=== PATIENT | female | born 1990 | race Caucasian/White ===

== ENCOUNTER → 2019-09-07 08:48 | Outpatient (CLI) | payer SELFPAY ==
[2014-09-28 10:45] VITALS: BMI 40.5
[~2019-09-07 08:48] MED LIST: AUGMENTIN 875-11 TAB PO; CLARITIN 10 MG10 MG PO; HYDROCODONE-APA1 TAB PO; IBUPROFEN600 MG PO; PRENAVITE1 TAB PO
[2019-09-07 09:43] LABS: APPEARANCE CLOUDY (CLEAR); BILIRUBIN NEGATIVE (NEGATIVE); COLOR YELLOW (YELLOW); GLUCOSE NEGATIVE (NEGATIVE); KETONE NEGATIVE (NEGATIVE); NITRITE NEGATIVE (NEGATIVE); PROTEIN NEGATIVE (NEGATIVE); UROBILINOGEN NORMAL (NORMAL)
[2019-09-07 09:48] LABS: BACTERIA MANY /hpf (NEGATIVE); EPITHELIAL CELLS 0-5 /hpf (0-5); RED CELLS - URINE NONE SEEN /hpf (0-5)
== END | disposition home or self-care (01) ==
LOC: D.LDO 08:48
PROVIDERS: ATTEND Obstetrics & Gynecology
DX: O47.00 False labor before 37 completed weeks of gestation, unspecified trimester (principal)

== ENCOUNTER 2019-09-28 17:23 | Outpatient (CLI) | payer SELFPAY ==
[2014-09-28 10:45] VITALS: BMI 40.5
[2019-09-28 18:41] LABS: APPEARANCE CLEAR (CLEAR); BILIRUBIN NEGATIVE (NEGATIVE); COLOR YELLOW (YELLOW); GLUCOSE NEGATIVE (NEGATIVE); KETONE NEGATIVE (NEGATIVE); NITRITE NEGATIVE (NEGATIVE); PROTEIN NEGATIVE (NEGATIVE); UROBILINOGEN NORMAL (NORMAL)
== END 2019-09-28 19:24 | disposition home or self-care (01) ==
LOC: D.LDO 17:23
PROVIDERS: ATTEND Obstetrics & Gynecology
DX: O26.899 Other specified pregnancy related conditions, unspecified trimester (principal); M54.9 Dorsalgia, unspecified; R11.2 Nausea with vomiting, unspecified

== ENCOUNTER 2019-10-24 13:00 | Inpatient (IN) | payer OTHER ==
[~2019-10-24] VITALS: Ht 165.1 cm; Wt 87.1 kg
[2019-10-24] VITALS (11 sets, daily range): BP systolic 100–113; BP diastolic 53–73; Ht 165.1 cm; Wt 87.1 kg
--- NOTE | ~2019-10-24 | OP ---
PATIENT NAME: JOHAN MOHAMUD MEDICAL RECORD: [id number] :92 LOCATION:[id number] ADMISSION DATE:10/24/19 SURGEON: LUX ZULETA MD DATE OF OPERATION: 10/24/2019 PREOPERATIVE DIAGNOSES: 1. Term intrauterine at 39 weeks. 2. History of previous section. POSTOPERATIVE DIAGNOSES: 1. Term intrauterine at 39 weeks. 2. History of previous section. PROCEDURE: Repeat low transverse section. SURGEON: Lux Zuleta MD ANESTHESIA: Regional via spinal. INTRAVENOUS FLUIDS: Per anesthesia record. ESTIMATED BLOOD LOSS: 1000 cc. SPECIMENS: Included placenta and cord for gases. FINDINGS: 1. Viable , Apgars 9 at one and 9 at five. 2. Placenta delivered manually intact, 3-vessel cord noted. 3. Normal adnexa bilaterally. COMPLICATIONS: None apparent. PROCEDURE IN DETAIL: The patient was taken to the operating room where regional anesthesia was achieved without any difficulty via spinal. The patient was then prepped and draped in normal sterile fashion in the dorsal supine position. SCDs were on and functioning normally, and a Ash catheter had been placed and was draining freely. At this point, a Pfannenstiel skin incision was made and extended downward to the underlying subcutaneous fat to the level of the fascia. The fascia was then excised in the midline and extended bilaterally using the Esteves scissors. The superior and inferior aspects of the fascial incision were then grasped with Sonu clamps times 2, tented upward, and sharply dissected from the underlying fascia using the Bovie cautery and the Esteves scissors. The rectus muscles were then bluntly in the midline. Peritoneum entered sharply at the superior aspect of the incision. The peritoneal incision was then extended laterally using the Metzenbaum scissors and inferiorly using the Metzenbaum scissors. A bladder blade was then placed into the pelvis. A bladder flap was created by excising the anterior leaf of the broad ligament across the lower uterine segment. This was further developed sharply using the Metzenbaum scissors and the bladder blade was replaced over the bladder flap. A low transverse incision was made with a scalpel and extended using the Pelosi method. The vertex was delivered atraumatically, followed by the body. The infant was bulb suctioned upon delivery of the head. The cord was clamped times 2, cut, and infant was handed to the waiting nursery team. Cord was obtained for gases and the placenta was delivered manually intact. The uterus was cleared of all clots and debris, exteriorized and vigorously massaged with OPERATIVE REPORT [id number] JOHAN MOHAMUD good uterine tone noted. The fascial incision was repaired with 0 Vicryl in a running locked fashion times 2 with good hemostasis noted. Posterior cul-de-sac was then thoroughly irrigated and the uterus was replaced into the pelvis. Anterior cul-de-sac was then thoroughly irrigated and meticulous hemostasis was noted from the uterine incision. Counts were correct times 2 for needles, sponges, and instruments. The fascia was repaired with 0 loop PDS times 1 and the skin repaired with gabe. The patient tolerated the procedure well, transferred to postanesthesia recovery stable without incident. TRANSINT:[id number] Voice Confirmation ID: [id number] DOCUMENT ID: [id number] LUX ZULETA MD CC: [id number] DICTATION DATE: 11/04/19726 FISHING BOAT CAPTAIN: 11/04/19 0752 DIS IN 10/26/19 [facility] [address] [place] [address]
[2019-10-24] MEDS ORDERED: HYDROCODON-ACE1 EAC7 PO (14:54)
[2019-10-24 15:33] LABS: BASOPHILS 0.4 % (0-2); EOSINOPHILS 0.5 % (0-7); HEMATOCRIT 31.4 % (36.0-48.0); HEMOGLOBIN 9.6 g/dL (12-16); IMMATURE GRANULOCYTES 0.3 % (0-5); LYMPHOCYTES 21.5 % (15-50); MCH 22.2 pg (26.0-34.0); MCHC 30.6 g/dL (31.0-37.0); MCV 72.5 fL (80.0-100.0); MEAN PLATELET VOLUME 9.7 fL (7.4-10.4); MONOCYTES 6.4 % (2-11); NEUTROPHILS 70.9 % (40-80); PLATELET COUNT 334 10x3/uL (130-400); RBC 4.33 10x6/uL (4.00-5.40); RDW 16.9 % (11.5-14.5); WBC 9.8 10x3/uL (4.8-10.8)
--- NOTE | 2019-10-24 17:50 | NUR ---
RECEIVED PT FROM RECOVERY ROOM. ALERT AND ORIENTED. IV NS WITH 20 U PITOCIN PLACED ON ALARIS PUMP AT 125 ML/HR. INFUSING INTO LEFT AC WITHOUT SIGNS OF INFILTRATION. VS OBTAINED. U/U FIRM, RUBRA MOD, CLEAN CHUX/TOWELS PLACED. CLEAN CHARLENE-PADS X 2 PLACED. INSTRUCTED ON INCENTIVE SPIROMETER WHICH WAS USED X 3 WITHOUT DIFFICULTY. LTCS ABD DRESSING DRY AND INTACT. NOVA DRAINING CLEAR YELLOW URINE AND ATTACHED TO INNER RIGHT THIGH. SCD'S ON AND PLACED ON PUMP. WORKING BILATERALLY. VISITOR X 1 IN ROOM. IN NURSERY. DISCUSSED PLANS FOR PAIN MANAGEMENT INCLUDING AS400 ANALYST DILAUDID AND ICE PACK OVER INCISION. ICE PACK PLACED AT THIS TIME. SIDE RAILS UP X2, CALL LIGHT IN REACH.
--- NOTE | 2019-10-24 18:05 | NUR ---
U/U FIRM RUBRA SCANT, UNABLE TO MOVE LE. IN ROOM, PLANS TO BREASTFEED. CLEAR LIQUID DIET AT BEDSIDE. SIDE RAILS UP X 2, CALL LIGHT IN REACH.
--- NOTE | 2019-10-24 18:07 | NUR ---
DILAUDID GUEST ASSOCIATE INITIATED. /10 INCISIONAL PRESSURE. NO ACUTE DISTRESS NOTED. TALKING TO FAMILY, NOVA DRAINING. INSTRUCTED ON USE OF GUEST ASSOCIATE CONTROLLER FOR PAIN MANAGEMENT. INSTRUCTED THAT NO ONE ELSE MAY PUSH THE BUTTON. VERBALIZED UNDERSTANDING. SIDERAILS UP X 2, CALL LIGHT IN REACH.
--- NOTE | 2019-10-24 18:23 | NUR ---
U/U FIRM, ALBINO GREER, . VISITORS IN ROOM. NO REQUESTS. SIDE RAILS UP, BARN HAND AND CALL LIGHT IN REACH.
--- NOTE | 2019-10-24 18:45 | NUR ---
U/U FIRM ALBINO SMALL, REMOVED ONE CHARLENE-PAD. SECOND PAD CLEAN. NOVA DRAINING, IV PATENT, NO REQUESTS. INFANT AND VISITORS IN ROOM.
--- NOTE | 2019-10-24 19:35 | NUR ---
THIS RN AND Ambrose CONDON RN TO BEDSIDE FOR BEDSIDE SHIFT REPORT. PT AA&O X 4. INFORMED THAT WE ARE DOING BEDSIDE SHIFT REPORT AT THIS TIME. 2 FAMILY MEMBERS AT BEDSIDE. PAIN ASSESSED AT THIS TIME. PT REPORTS PAIN 6/10. Ambrose CONDON ASKS PT IF 6/10 IS A TOLERABLE PAIN LEVEL FOR HER. PT STATES "YES." PT CURRENTLY ATTEMPTING TO CONSUME CLEAR LIQUID DIET AT THIS TIME. PT INFORMED THIS RN WILL RETURN AFTER THE PT HAS HAD TIME TO FINISH HER MEAL FOR A SHIFT ASSESSMENT. PT IS AGREEABLE. APPROX 300ML URINE NOTED IN UROMETER AND DUMPED TO NOVA BAG. PT DENIES NEEDS AT THIS TIME. BED LOW, SIDE RAILS UP X 2. CALL LIGHT AND DIRECTOR OF COMMUNITY LIFE BUTTON AT PT'S SIDE. SCD WRAPS IN PLACE BILATERALLY. CONNECTED TO PUMP. PUMP IS ON AND FUNCTIONING.
--- NOTE | 2019-10-24 20:00 | NUR ---
THIS RN TO BEDSIDE FOR SHIFT ASSESSMENT. PT AA&O X 4. REPORTS PAIN IS 6/10. HAS REPORTS SHE HAS BEEN USING HER COMMERCIAL DECORATOR. NO FURTHER PAIN INTERVENTIONS REQUESTED AT THIS TIME. PT HAS A PIV TO LEFT AC W/NS W/20 UNITS PITOCIN INFUSING AT 125ML/HR. SITE WNL W/OUT REDNESS OR SWELLING. BREATHSOUNDS CL/=, BOWEL SOUNDS PRESENT IN ALL 4 QUADRANTS. ABD SOFT,NON DISTENDED. PT DENIES PASSING FLATUS OF YET. FUNDUS FIRM,U/U, SMALL RUBRA LOCHIA NOTED. CLEAN PERIPAD PLACED. NOVA CATH IS PLACE AND DRAINING VIA GRAVITY AT BEDSIDE. PT REPORTS SHE DOESN'T HAVE FULL CONTROL OF HER LOWER EXTREMITIES YET, SHE'S ABLE TO MOVE THEM SLIGHTLY. SCD WRAPS REMOVED AND LEGS INSPECTED. WRAPS REPLACED. REMAIN CONNECTED TO PUMP. PUMP IS ON AND FUNCTIONING. PEDAL PULSES PRESENT BILATERALLY. PT INSTRUCTED ON I.S. AND PERFORMS X 3 TIMES WITH GOOD EFFORT. COUGHS X 3 W/GOOD EFFORT. PT REPOSITIONED FROM SIDE TO SIDE TO REST TO LEFT LATERAL TILT. PILLOW TO BACK FOR COMFORT. FRESH ICE CAP TO ABD. PILLOW PLACED BETWEEN PT'S LEGS FOR COMFORT. FRESH ICE WATER AND A CUP OF ICE SERVED. PT DENIES FURTHER NEEDS AT THIS TIME. 2 VISITORS AT BEDSIDE. BED LOW, [place] RAILS UP X 2. CALL LIGHT AND COMMERCIAL DECORATOR BUTTON AT PT'S SIDE.
--- NOTE | 2019-10-24 21:00 | NUR ---
ROUNDS MADE. PT REMAINS TO LEFT LATERAL TILT. AA&O X 4. REPORTS PAIN 5/10. PT ASKED IF SHE HAS BEEN PUSHING HER WRAP TURNER BUTTON. PT REPORTS SHE HAS BEEN, BUT NOT FREQUENTLY BECAUSE SHE WANTS TO BE AWAKE AND ALERT WHEN HER BABY GETS TO COME TO THE ROOM. NO REQUEST FOR ADDITIONAL PAIN INTERVENTIONS AT THIS TIME.
--- NOTE | 2019-10-24 21:30 | NUR ---
ROUNDS MADE. PT AA&O X 4 TALKING WITH VISITORS. URINE OUTPUT COLLECTED. APPROX 90ML NOTED IN UROMETER AND DUMPED. PT DENIES NEEDS AT THIS TIME. ALARIS PUMP REMAINS AT 125ML/HR. SCD WRAPS REMAIN ON BILATERALLY, REMAIN CONNECTED TO PUMP. PUMP IS ON AND FUNCTIONING.
--- NOTE | 2019-10-24 22:30 | NUR ---
THIS RN TO BEDSIDE TO T/C/D WITH PATIENT. PT REPOSITIONS W/MINIMAL ASSIST AND TURNS FROM SIDE TO SIDE. 1 SET OF CHUX/TOWELS REMOVED. CURRENT PERIPAD W/SMALL RUBRA LOCHIA CHANGED. CLEAN PAD PLACED. PT ENDS IN LOW PERDUE'S POSITION. INCISION REMAINS C/D/I W/LARGE ABD BANDAGE. APPROX 100ML URINE NOTED IN UROMETER AND DUMPED. PT PERFORMS I.S. X 3 AND COUGHS W/GOOD EFFORT. PT STILL DENIES PASSING FLATUS, BUT STATES SHE CAN FEEL THE GAS IN HER SHOULDERS. NO REQUEST FOR PAIN INTERVENTION AT THIS TIME. PT REPORTS ALL FEELING HAS RETURNED TO LE'S, BUT SHE DOES HAVE SOME "TINGLING" IN BOTH LE'S. SCD WRAPS REMAIN IN PLACE BILATERALLY, REMAIN CONNECTED TO PUMP. PUMP IS ON AND FUNCTIONING. PT DECLINES OFFERS TO BRING HER ADDITIONAL EATS OR DRINKS. FAMILY AND SIG OTHER AT BEDSIDE. BED LOW, SIDE RAILS UP X 2. CALL LIGHT AND CARDIOVASCULAR OR NURSE BUTTON AT PT'S SIDE. UP IN SIG OTHERS ARMS.
--- NOTE | 2019-10-24 23:33 | NUR ---
ROUNDS MADE. PT CURRENTLY SITTING UP IN BED . PAIN ASSESSED. PT REPORTS PAIN IS BETTER. RATES PAIN 4/10. TORADOL TEACHING PROVIDED. PT IS AGREEABLE. APPROX 125ML URINE NOTED IN UROMETER AND DUMPED. WILL RETURN FOR VITALS SIGNS ONCE PT HAS FINISHED NURSING.
[2019-10-25 00:44] VITALS: BP 109/60
--- NOTE | 2019-10-25 00:45 | NUR ---
PT HAS COMPLETED NURSING AND PUMPING. THIS RN TO BEDSIDE FOR VITAL SIGNS AND TORADOL ADMIN. PT CURRENTLY RATING PAIN 6/10 REPORTING INCREASED CRAMPING PAIN POST . PT TURNS SELF FROM SIDE TO REST IN RT LATERAL TILT. CURRENT PERIPAD W/SMALL LOCHIA NOTED. PAD CHANGE DONE. APPROX 60ML URINE NOTED IN UROMETER. SCD WRAPS REMAIN IN PLACE BILATERALLY. CONNECTED TO PUMP. PUMP IS ON AND FUNCTIONING. FRESH ICE CAP PROVIDED. PT ENCOURAGED TO INCREASE PO FLUID IN ADDITION TO HER ICE THAT'S SHES BEEN EATING.PT AGREEABLE. BED LOW, SIDE RAILS UP X 2. CALL LIGHT AND EPIC SPECIALIST BUTTON AT PT'S SIDE. FAMILY AT BEDSIDE W/ UP IN ARMS. PT DENIES NEEDS AT THIS TIME.
--- NOTE | 2019-10-25 02:30 | NUR ---
ROUNDS MADE. PT CURRENTLY . DENIES NEEDS. APPROX 60ML NOTED IN UROMETER AND DUMPED TO NOVA BAG.
[2019-10-25 03:45] VITALS: BP 100/58
--- NOTE | 2019-10-25 03:45 | NUR ---
ROUNDS MADE FOR VITAL SIGNS. PT HAS REPOSITIONED SELF UP IN BED. PERFORMS I.S. X 3 W/GOOD EFFORT, COUGHS X3 W/GOOD EFFORT. REPORTS SHE HAS PASSED MORE FLATUS. SCD WRAPS REMAIN IN PLACE BILATERALLY, CONNECTED TO PUMP. PUMP IS ON AND FUNCTIONING. APPROX 100ML URINE NOTED IN UROMETER AND DUMPED. PT CURRENTLY RATES PAIN 2/10. DENIES FURTHER NEEDS AT THIS TIME. BED LOW, SIDE RAILS UP X 2. CALL LIGHT AND SALES TRAINER BUTTON AT PT'S SIDE.
--- NOTE | 2019-10-25 05:30 | NUR ---
ROUNDS MADE. PT AA&O X 4 IN HIGH FOWLERS. PAIN ASSESSED. PT REPORTS PAIN IS BEGINNING TO INCREASE. PT INFORMED OF THE NEXT TIME SHE MAY HAVE TORADOL. PT VERBALIZES UNDERSTANDING. APPROX 75ML URINE NOTED IN UROMETER AND DUMPED TO NOVA BAG. PT PERFORMS I.S. X 3 AND COUGHS X 3 WITH GOOD EFFORT. PT HAS REPOSITIONED SELF IN BED. SCD WRAPS REMAIN IN PLACE BILATERALLY, CONNECTED TO PUMP. PUMP REMAINS ON. FRESH ICE WATER SERVED PER REQUEST. PT DENIES FURTHER NEEDS AT THIS TIME.
--- NOTE | 2019-10-25 06:30 | NUR ---
TO PT'S BEDSIDE FOR SHIFT I&O COLLECTION. PT ATTEMPTING REST AT THIS TIME, BUT AA&O. PAIN ASSESSED. PT REPORTS PAIN 5/10. REMINDED OF TORADOL ADMIN TO COME. APPROX 1100ML OF URINE EMPTIED FROM NOVA BAG. IV PUMP CLEARED W/A TOTAL OF 1458ML NOTED FOR NS W/20 UNITS OF PITOCIN AND 22ML OF DILAUDID MUCKER COFFERDAM NOTED. PT HAS REPOSITIONED SELF TO LEFT LATERAL TILT AND NOW REPOSITIONS SELF TO SUPINE POSITION FOR PERICARE AND CHUX CHANGE. CURRENT PERIPAD W/SMALL TO MODERATE LOCHIA NOTED. CLEAN PERIPAD PLACED. PT DENIES NEEDS AT THIS TIME. ICE CAP REMOVED PER PT REQUEST.
[2019-10-25 06:44] LABS: BASOPHILS 0.2 % (0-2); EOSINOPHILS 0.9 % (0-7); HEMATOCRIT 27.3 % (36.0-48.0); HEMOGLOBIN 8.3 g/dL (12-16); IMMATURE GRANULOCYTES 0.3 % (0-5); LYMPHOCYTES 20.8 % (15-50); MCH 21.9 pg (26.0-34.0); MCHC 30.4 g/dL (31.0-37.0); MEAN PLATELET VOLUME 9.6 fL (7.4-10.4); MONOCYTES 5.8 % (2-11); RBC 3.79 10x6/uL (4.00-5.40); RDW 16.6 % (11.5-14.5); WBC 10.6 10x3/uL (4.8-10.8)
[2019-10-25 07:04] LABS: PLATELET COUNT 259 10x3/uL (130-400)
--- NOTE | 2019-10-25 08:24 | NUR ---
AM ASSESSMENT COMPLETED. FUNDUS FIRM AT U/1 WITH LIGHT BLEEDING NOTED TO CHARLENE PAD, BIKINI INCISION CLEAN AND DRY. NOVA CATH IN PLACE WITH 100ML CLEAR URINE NOTED. IV INFUSING PER ORDERS. SCD IN PLACE BILAT PER ORDERS. PT ABLE TO MOVE HERSELF UP IN BED AND STATES DESIRE THAT SHE IS READY TO GET UP AND WALK. RATES PAIN AT 4/10 AND IS AGREEABLE TO PAIN MED PRIOR TO AMBULATING. SIDE RAILS UP X 2 WITH CALL LIGHT WITH IN HER REACH.
--- NOTE | 2019-10-25 09:00 | NUR ---
IDENTIFICATION AND RECORDS COMMANDER DISCONTINUED AND IV SALINE LOCKED. PAIN MED GIVEN SCANNED TO EMAR. NOVA CATH REMOVED WITH TOTAL OF 350ML CLEAR URINE NOTED. PT IS THEN ABLE TO MOVE SELF TO SITTING UP ON SIDE OF BED, DENIES NAUSEA AND NO COMPLAINT OF DIZZINESS. UP TO BATHROOM WITH LITTLE ASSISTANCE. UNABLE TO VOID AT THIS TIME, WARM WET WASH CLOTHS PROVIDED FOR CHARLENE CARE, MESH BRIEFS WITH CHARLENE PAD ON AND GOWN CHANGED. AMBULATORY TO ROOM 1257 WITH INFANT IN CRIB. ORIENT TO ROOM, NO QUESTIONS OR NEEDS AT THIS TIME. FRIENDS/FAMILY AT BEDSIDE.
--- NOTE | 2019-10-25 09:45 | NUR ---
PT CALLS OUT THAT SHE WAS ABLE TO VOID. THIS RN TO ROOM, NOTED 400ML CLEAR URINE TO COLLECTION HAT. PT UNDERSTANDS THAT ADDITIONAL VOID NEEDS TO BE MEASURED. RATES PAIN AT 2/10, SITTING UP IN CHAIR AT BEDSIDE WITH INFANT. CALL LIGHT WITH IN HER REACH.
--- NOTE | 2019-10-25 10:30 | NUR ---
CALLED TO ROOM, PT VOIDED 200ML, DENIES PAIN OR BURNING WITH VOIDS AND IS REQUESTING TO SHOWER. TOWELS/GOWN PLACED IN BATHROOM. VERBAL INSTRUCTIONS GONE OVER ABOUT INCISION CARE. PT AND FAMILY MEMBER STATE UNDERSTANDING OF EMERGENCY CALL WHILE IN SHOWER.
--- NOTE | 2019-10-25 11:25 | NUR ---
PT OUT OF SHOWER, RATES PAIN AT 2/10 AND DENIES NEEDS FOR NURSE AT THIS TIME.
--- NOTE | 2019-10-25 13:45 | NUR ---
PT CALLS OUT WITH REQUEST FOR PAIN MED. THIS RN TO ROOM, SHE RATES PAIN AT INCISION AT 6/10 ALSO C/O NAUSEA AT THIS TIME. MEDS GIVEN SCANNED TO EMAR WITH LARGE ICE WATER. IN CRIB AT BEDSIDE, FRIENDS AND FAMILY PRESENT.
--- NOTE | 2019-10-25 14:15 | NUR ---
RATES PAIN AT 2/10 AT THIS TIME AND DENIES NAUSEA. NO NEEDS VOICED.
--- NOTE | 2019-10-25 16:00 | NUR ---
LARGE ICE WATER PER REQUEST. RATES PAIN AT 3/10. IN ROOM, FAMILY MEMBERS ALSO PRESENT.
--- NOTE | 2019-10-25 17:15 | NUR ---
PAIN MED GIVEN PER REQUEST. RATES PAIN AT 7/10 INFANT TO BREAST AT THIS TIME. SIG OTHER AT BEDSIDE.
--- NOTE | 2019-10-25 18:00 | NUR ---
PAIN AT 3/10 AT THIS TIME. NO NEEDS VOICED. INFANT IN CRIB AT BEDSIDE, FAMILY AND FRIENDS PRESENT. SIDE RAILS UP X 2 WITH CALL LIGHT IN REACH.
--- NOTE | 2019-10-25 18:45 | NUR ---
REPORT TO 7P-7A
--- NOTE | 2019-10-25 19:06 | NUR ---
SHIFT REPORT RECEIVED FROM ANA PETERSEN RN
--- NOTE | 2019-10-25 21:05 | NUR ---
PT RESTING IN BED HOLDING . DENIES ANY COMPLAINTS OR NEEDS AT THIS TIME. INSTRUCTED PT TO NOTIFY NURSE WITH ANY PROBLEMS, NEEDS, OR CONCERNS. VERBALIZED UNDERSTANDING. BED IN LOW POSITION. SR UP X2. CALL LIGHT WITHIN PTS REACH.
[2019-10-25 21:30] VITALS: BP 107/50
--- NOTE | 2019-10-25 21:30 | NUR ---
PT RESTING IN BED. ASSESSMENT COMPLETE PER FLOWSHEET. VSS. BBS CLEAR. ABDOMEN SOFT. LOW TRANSVERS ABDOMINAL INCISION C/D/I WITH WAQAS. FUNDUS FIRM AND 2 BELOW UMBILICUS. PT REPORTS A SMALL AMOUNT OF LOCHIA. ACTIVE BS X4 QUADRANTS. PT REPORS PASSING GAS. DENIES HAVING A BM. NO EDEMA NOTED TO BLE. INFANT IN OPEN CRIB AT PTS BEDSIDE. POC DISCUSSED. QUESTIONS ANSWERED. PT INSTRUCTED TO NOTIFY NURSE WITH ANY PROBLEMS, NEEDS, OR CONCERNS. VERBALIZED UNDERSTANDING. BED IN LOW POSITION. SR UP X2. CALL LIGHT WITHIN PTS REACH. SL REMOVED PER PT REQUEST.
--- NOTE | 2019-10-25 21:30 | NUR ---
NORCO 10 X1 TABLET GIVEN FOR C/O INCISION PAIN. INSTRUCTED PT TO NOTIFY NURSE IF MEDICATION NOT EFFECTIVE. VERBALIZED UNDERSTANDING.
--- NOTE | 2019-10-25 22:45 | NUR ---
PT RESTING IN BED. IN OPEN CRIB AT PTS BEDSIDE. PT DENIES ANY C/O PAIN OR ANY NEEDS AT THIS TIME. INSTRUCTED PT TO NOTIFY NURSE WITH ANY PROBLEMS, NEEDS, OR CONCERNS. VERBALIZED UNDERSTANDING. BED IN LOW POSITION. SR UP X2. CALL LIGHT WITHIN PTS REACH.
[2019-10-25 23:50] VITALS: BP 114/60
--- NOTE | 2019-10-25 23:50 | NUR ---
PT AMBULATING IN ROOM. S/O HOLDING . VS OBTAINED. PT DENIES ANY COMPLAINTS. PADS PROVIDED. INSTRUCTED PT TO NOTIFY NURSE WITH ANY PROBLEMS, NEEDS, OR CONCERNS. VERBALIZED UNDERSTANDING. BED IN LOW POSITION. SR UP X2. CALL LIGHT WITHIN PTS REACH.
--- NOTE | 2019-10-26 02:05 | NUR ---
PT RESTING IN BED WITH EYES CLOSED. INFANT IN OPEN CRIB AT PTS BEDSIDE. NO DISTRESS NOTED. BED IN LOW POSITION. SR UP X2. CALL LIGHT WITHIN PTS REACH.
[2019-10-26 04:40] VITALS: BP 106/64
--- NOTE | 2019-10-26 04:57 | NUR ---
PT SITTING UP ON SIDE OF BED. INFANT IN OPEN CRIB AT PTS BEDSIDE. VS OBTAINED. PT C/O INCISIONAL PAIN. NORCO 10 AND MOTRIN 600MG X1 TABLET GIVEN. WATER PITCHER FILLED. INSTRUCTED PT TO NOTIFY NURSE IF PAIN MEDICATION NOT EFFECTIVE OR WITH ANY OTHER PROBLEMS, NEEDS, OR CONCERNS. VERBALIZED UNDERSTANDING. BED IN LOW POSITION. SR UP X2. CALL LIGHT WITHIN PTS REACH.
--- NOTE | 2019-10-26 05:47 | NUR ---
PT RESTING IN BED. REPORTS HER PAIN IS BETTER. DENIES ANY REQUEST AT THIS TIME. INSTRUCTED PT TO NOTIFY NURSE WITH ANY PROBLEMS, NEEDS, OR CONCERNS. VERBALIZED UNDERSTANDING. BED IN LOW POSITION. SR UP X2. CALL LIGHT WITHIN PTS REACH.
--- NOTE | 2019-10-26 06:44 | NUR ---
PT SITTING UP IN BED WITH . NO DISTRESS NOTED. PT DENIES ANY COMPLAINTS OR NEEDS. INSTRUCTED PT TO NOTIFY NURSE WITH ANY PROBLEMS, NEEDS, OR CONCERNS. VERBALIZED UNDERSTANDING. BED IN LOW POSITION. SR UP X2. CALL LIGHT WITHIN PTS REACH.
--- NOTE | 2019-10-26 07:00 | NUR ---
RECEIVED REPORT FROM Phi BAUMAN RN. PT RESTING IN BED WITH FAMILY/VISITORS AT BEDSIDE.
[2019-10-26 07:12] LABS: RAPID PLASMA REAGIN Non Reactive (Non Reactive)
[2019-10-26 08:30] VITALS: BP 104/45
--- NOTE | 2019-10-26 09:45 | NUR ---
PT. UP TO SHOWER. FAMILY AT BEDSIDE.
--- NOTE | 2019-10-26 10:12 | NUR ---
OFFERED PAIN MEDICATION IT HAS BEEN 5 HOURS SINCE LAST DOSE. PT DECLINES AT THIS TIME.
--- NOTE | 2019-10-26 10:35 | NUR ---
PT REQUESTING PAIN MED.
[2019-10-26] MEDS ORDERED: HYDROCODON-ACE1 EA10 PO (11:08)
[2019-10-26] MEDS ORDERED: IBUPROFEN600 MG PO (11:09)
--- NOTE | 2019-10-26 11:38 | NUR ---
REVIEWED DISCHARGE INSTRUCTIONS WITH PATIENT. STATES UNDERSTANDING. PRESCRIPTIONS GIVEN.
--- NOTE | 2019-10-26 12:15 | NUR ---
TDAP AND FLU VACCINES GIVEN. SEE EMAR.
--- NOTE | 2019-10-26 12:30 | NUR ---
DISCHARGED HOME WITH FAMILY VIA WHEELCHAIR TO PRIVATE VEHICLE ACCOMPANIED BY HOSPITAL VOLUNTEER.
== END 2019-10-26 12:30 | disposition home or self-care (01) | DRG 788 ==
LOC: D.LDO 13:00 → D.LD 14:41
PROVIDERS: ADMIT Obstetrics & Gynecology; ATTEND Obstetrics & Gynecology
PROC: 10D00Z1 Extraction of Products of Conception, Low, Open Approach (ICD-10-PCS; principal; 2019-10-24 16:00)
DX: O34.219 Maternal care for unspecified type scar from previous cesarean delivery (principal); Z3A.38 38 weeks gestation of pregnancy; Z37.0 Single live birth; R87.622 Low grade squamous intraepithelial lesion on cytologic smear of vagina (LGSIL); O75.89 Other specified complications of labor and delivery

== ENCOUNTER 2021-01-05 13:00 | Emergency (ER) | payer OTHER ==
[~2021-01-05] VITALS: Ht 165.1 cm; Wt 65.9 kg
[~2021-01-05 13:00] MED LIST changes: +HYDROCODON-ACE1 EA10 PO; +HYDROCODON-ACE1 EAC7 PO
[2021-01-05 13:05] VITALS: Ht 165.1 cm; Wt 65.9 kg
[2021-01-05] MEDS ORDERED: EFFEXOR XR150 MG (13:07)
[2021-01-05] MEDS ORDERED: ULTRAM50 MG (13:09)
[2021-01-05 13:45] LABS: BASOPHILS 0.6 % (0-2); EOSINOPHILS 1.9 % (0-7); HEMATOCRIT 37.2 % (36.0-48.0); HEMOGLOBIN 11.4 g/dL (12-16); IMMATURE GRANULOCYTES 0.1 % (0-5); LYMPHOCYTE ABS# 3.02 10x3/uL (1.18-3.74); LYMPHOCYTES 37.8 % (15-50); MCHC 30.6 g/dL (31.0-37.0); MCV 71.8 fL (80.0-100.0); MEAN PLATELET VOLUME 9.3 fL (7.4-10.4); MONOCYTES 8.8 % (2-11); NEUTROPHIL ABS# 4.07 10x3/uL (1.56-6.13); NEUTROPHILS 50.8 % (40-80); PLATELET COUNT 413 10x3/uL (130-400); RBC 5.18 10x6/uL (4.00-5.40); RDW 19.3 % (11.5-14.5)
[2021-01-05 13:45] LABS: BILIRUBIN NEGATIVE (NEGATIVE); KETONE NEGATIVE (NEGATIVE); NITRITE NEGATIVE (NEGATIVE); UROBILINOGEN NORMAL mg/dL (< 2)
[2021-01-05 13:48] LABS: BACTERIA MODERATE HPF (NONE SEEN); SQUAMOUS EPITHELIAL 0-5 HPF (0-4); WHITE CELLS - URINE 0-5 HPF (0-4)
[2021-01-05 13:54] LABS: CALC OSMOLALITY 272 mosm/kg (275-300); CALCIUM 8.6 mg/dL (8.5-10.1); CARBON DIOXIDE 28.9 mmol/L (21.0-32.0); CHLORIDE - SERUM 102 mmol/L (98-107); CREATININE - SERUM 0.8 mg/dL (0.6-1.3); GLUCOSE 73 mg/dL (74-106); POTASSIUM - SERUM 3.5 mmol/L (3.5-5.1); SODIUM 138 mmol/L (136-145); UREA NITROGEN 8 mg/dL (7-18); eGFR NON AFRICAN AMERICAN 90 mL/min (90-120)
[2021-01-05 13:55] LABS: HCG SERUM NEGATIVE (NEGATIVE)
[2021-01-05 13:56] LABS: UDS - AMPHET NEGATIVE QUAL (NEGATIVE); UDS - BARB NEGATIVE QUAL (NEGATIVE); UDS - BENZO NEGATIVE QUAL (NEGATIVE); UDS - COCAINE NEGATIVE QUAL (NEGATIVE); UDS - OPIATE NEGATIVE QUAL (NEGATIVE); UDS - PCP NEGATIVE QUAL (NEGATIVE); UDS - THC NEGATIVE QUAL (NEGATIVE)
[2021-01-05 14:02] LABS: ALBUMIN 3.9 g/dL (3.4-5.0); ALKALINE PHOSPHATASE 109 U/L (30-120); ALT (SGPT) 39 U/L (10-68); BILIRUBIN - TOTAL 0.18 mg/dL (0.2-1.3); MAGNESIUM - SERUM 2.4 mg/dL (1.8-2.4); PROTEIN - SERUM 7.6 g/dL (6.4-8.2)
[2021-01-05 14:04] LABS: TROPONIN-I < 0.017 ng/mL (0.000-0.060)
[2021-01-05 15:03] VITALS: BP 120/73
== END 2021-01-05 15:03 | disposition home or self-care (01) ==
LOC: D.ER 13:00
PROVIDERS: Family Medicine
DX: R56.9 Unspecified convulsions (principal); T40.425A Adverse effect of tramadol, initial encounter